=== PATIENT | male | born 1980 | race African-American/Black ===

== ENCOUNTER 2022-06-19 06:28 | Inpatient (IN) | payer OTHER, SELFPAY ==
[2022-06-19] VITALS (32 sets, daily range): BP systolic 140–192; BP diastolic 79–109; PULSE 80–123; RESP 14–32; TEMP 36–37.1; O2SAT 94–100; BMI 39.9
--- NOTE | ~2022-06-19 | XR_ITS ---
Portable chest x-ray Comparison: None Clinical History: Shortness of breath Findings: There is extensive groundglass pulmonary disease. No pleural effusion or pneumothorax. Ca rdiomediastinal silhouette is prominent. Bones and soft tissues are unremarkable. Impression: Extensive groundglass pulmonary disease. Correlate for pulmonary edema or infection. Probable cardiomegaly. Reviewed, dictated and finalized at location . Impression: Extensive groundglass pulmonary disease. Correlate for pulmonary edema or infec tion. Probable cardiomegaly.
--- NOTE | 2022-06-19 06:36 | ECG_ITS ---
Measurements Intervals [place] Rate: 113 P: 56 [place]: 119 QRS: 8 QRSD: 90 T: 73 QT: 312 QTc: 428 Interpretive Statements SINUS TACHYCARDIA WITH SHORT [place] INTERVAL BASELINE ARTIFACT POSSIBLE LEFT ATRIAL ENLARGEMENT BORDERLINE ECG NO PREVIOUS ECG AVAILABLE FOR COMPARISON Electronically Signed On 06-19-2022 16:57:17 CDT by Sanford Garrison M.D.
[2022-06-19 07:24] LABS: Basophils Percent Auto 0.4 % (0.2-1.2); Eosinophils Absolute Auto 0.2 K/mm3 (0-0.3); Eosinophils Percent Auto 2.4 % (0-4.4); Hematocrit 31.7 % (42.0-52.0); Immature Granulocyte Absolute 0.04 K/mm3 (0.00-0.031); Immature Granulocyte Percent A 0.5 % (0-0.5); Lymphocytes Percent Auto 20.2 % (18.3-44.2); Mean Corpuscular HGB Conc 31.5 g/dl (32-36); Mean Corpuscular Hemoglobin 26.8 pg (26-34); Monocytes Absolute Auto 0.3 K/mm3 (0.1-0.6); Monocytes Percent Auto 4.3 % (2.6-8.5); Neutrophils Absolute Auto 5.7 K/mm3 (1.3-6.7); Neutrophils Percent Auto 72.2 % (45.5-73.1); Platelet Count Result 195 k/mm3 (150-375); Red Blood Count 3.73 M/mm3 (4.6-6.20); Red Cell Distribution Width 15.6 % (11.5-14.5); White Blood Count 7.9 K/mm3 (4.5-10.0)
--- NOTE | 2022-06-19 07:32 | ED.GENADULT ---
HPI - General Adult General Chief complaint: Shortness of Breath/Dyspnea Stated complaint: sob Time Seen by Provider: 06/19/22 07:01 Source: RN notes reviewed History of Present Illness HPI narrative: Patient presents emergency department from home via EMS for shortness of breath. Patient states he is on his way to dialysis this morning and became progressively more short of breath. Patient states he normally receives dialysis on Sunday and Sunday but missed this past Sunday's dialysis. He states that he has had no chest pain he denies any abdominal pain nausea vomiting. He feels the shortness of breath is improved currently on his CPAP machine he was placed on CPAP by EMS secondary to increased work of breathing. Patient is currently awake and alert x4 with no complaints in the room Related Data Home Medications Medication Instructions Recorded Confirmed lisinopril 20 mg tablet 20 mg PO DAILY 06/19/22 06/19/22 Allergies Allergy/AdvReac Type Severity Reaction Status Date / Time amlodipine AdvReac Dyspnea / Verified 06/19/22 06:46 SOB lisinopril AdvReac Dyspnea / Verified 06/19/22 06:46 SOB Review of Systems Review of Systems: Gen.: Denies fevers or chills ENT: Denies congestion Respiratory: Reports shortness of breath CV: Denies chest pain or palpitations GI: Denies abdominal pain nausea, emesis or diarrhea reports chronic renal failure dialysis Musculoskeletal: Denies back pain or muscle pain Neuro: Denies numbness, tingling, weakness or focal weakness Skin: Denies rash Except as documented, all other systems reviewed and negative [facility] Past Medical History Medical History (Updated 06/19/22 @ 12:25 by Julio Prado DO) Chronic renal failure Family History Family History (Updated 06/19/22 @ 09:21 by Ubaldo Diaz RN) Other Unknown family medical history Social History Social History (Updated 06/19/22 @ 07:33 by Julio Prado DO) Smoking status: Never smoker Alcohol intake: current Drinks per week: 1 Substance use: never Lack of Transportation: No Lack of Food: Never True Current Housing: I Do Not Have Housing Concerned About Future Housing: No Difficulty Paying Gas/Electric Bills: No Difficulty Paying for Meds: No Currently Unemployed: No Education: High School Diploma/GED Difficulty w/ Childcare or Family Care: No Spiritual care concerns: No Exam Narrative: APPEARANCE: No acute distress, nontoxic, resting in bed EYES: EOMI HEENT: Normocephalic, atraumatic, OMM RESPIRATORY: No respiratory distress CPAP currently on, coarse breath sounds throughout bilateral lung moore no wheezing CARDIOVASCULAR: Regular rate and rhythm without murmurs rubs or gallops. ABDOMINAL: Soft, nontender, nondistended, no rebound or guarding MUSCULOSKELETAl: Moves all extremities. No clubbing, cyanosis or edema. NEURO: Awake and alert x 4. Following commands, speech normal, no focal deficits SKIN:: Warm, dry. No rashes lesions or abrasions PSYCHIATRIC: Normal affect/mood, Course Course Emergency Course: Called and discussed Dr. Griffin for nephrology presentation work-up agrees with plan for your consult and dialysis today Called discussed Dr. Mosley for hospitalist service agrees with admission Discussed with patient and family results of workup and diagnosis. Discussed need for admission. Patient and family understand and agree to current treatment plan Vital Signs Vital signs: Vital Signs Pulse Rate 123 H 06/19/22 06:33 Respiratory Rate 23 H 06/19/22 06:33 Pulse Oximetry 100 06/19/22 06:33 Oxygen Delivery CPAP 06/19/22 06:33 Temperature 96.9 F L 06/19/22 09:47 Pulse Rate 80 06/19/22 10:00 Respiratory Rate 20 06/19/22 09:47 Blood Pressure 185/109 H 06/19/22 09:47 Pulse Oximetry 100 06/19/22 09:47 Oxygen Delivery CPAP 06/19/22 09:47 Fraction of Inspired Oxygen 35 06/19/22 09:47 Medical [place]
[2022-06-19 07:35] LABS: INR 1.2; Prothrombin Time 14.3 Seconds (11.1-14.7)
[2022-06-19 07:36] LABS: Partial Thromboplastin Time 30.6 SECONDS (22.3-36.8)
[2022-06-19 07:39] LABS: Alveolar/Arterial O2 Gradient 178.5 mmHg; Base Excess ABG -1.6 mEq/l (+/-2.0); Carboxyhemoglobin 0.3 % THb (0-2.0); Fractional Inspired Oxygen 80 %; HCO3 ABG 24.6 mEq/l (22.0-26.0); Methemoglobin ABG 0.5 %THb (0-1.5); Oxygen Content ABG 15.3 %vol (16.0-22.0); Oxygen Saturation ABG 99.7 % (95.0-100.0); Oxyhemoglobin 98.1 % THb (90.0-100.0); PCO2 ABG 48.1 mmHg (35.0-45.0); PO2 ABG 341.4 mmHg (80.0-100.0); PO2 FiO2 Ratio Arterial Blood 4.27 %; Reduced Hemoglobin 1.1 %THb (0-5.0); Total Hemoglobin 10.4 g/dL (12.0-18.0); pH ABG 7.327 (7.350-7.450)
[2022-06-19 07:44] LABS: Device BIPAP; Modified Allen's Test Pass; Site Drawn RIGHT RADIAL
[2022-06-19 07:45] LABS: Alanine Aminotransferase 26 U/L (6-50); Albumin Level 4.4 g/dL (3.5-5.1); Alkaline Phosphatase 131 U/L (38-126); Anion Gap 16 mmol/L (8-16); Aspartate Amino Transferase 40 U/L (17-59); Bilirubin,Total 0.9 mg/dL (0.2-1.3); Blood Urea Nitrogen 74 mg/dL (9-20); Calcium 8.5 mg/dL (8.4-10.2); Carbon Dioxide 27 mmol/L (22-30); Chloride 94 mmol/L (98-107); Estimated CRCL calculation 5 ml/min; Estimated Glomerular Filt Rate 3; Glucose 127 mg/dL (65-110); Potassium 4.3 mmol/L (3.4-5.0); Sodium 137 mmol/L (137-145)
[2022-06-19 07:45] LABS: Expiratory Pressure 6 cmH2O; Inspiratory Pressure 16 cmH2O
[2022-06-19 07:53] LABS: Troponin I 0.085 ng/mL (0.000-0.034)
[2022-06-19 08:04] LABS: NT Pro B Type Natriuretic Pept > 30000 pg/mL (19.9-100)
--- NOTE | 2022-06-19 09:33 | ADMGEN ---
This patient, Ronit Mcneal, was admitted to Intensive Care Unit-3. Patient/family oriented to hospital policies and general routines including ID bracelet, bed and alarms, visiting hours, pain management, procedures, bathroom and other care routines, personal items, smoking policy, room service/diet, and visiting hours. Information on how to activate the Rapid Response Team has been discussed. Patient/Family are encouraged to report perceived risks to care and to ask questions if they do not understand what they are told or what they should do.
--- NOTE | 2022-06-19 10:15 | PC.NURSE ---
Dr. Mosley updated on patient arrival and blood pressure via telephone
[2022-06-19 11:26] LABS: Alveolar/Arterial O2 Gradient 80.7 mmHg; Base Excess ABG 2.2 mEq/l (+/-2.0); Fractional Inspired Oxygen 30 %; HCO3 ABG 27.5 mEq/l (22.0-26.0); Oxygen Content ABG 13.8 %vol (16.0-22.0); Oxygen Saturation ABG 95.5 % (95.0-100.0); Oxyhemoglobin 93.9 % THb (90.0-100.0); PCO2 ABG 46.1 mmHg (35.0-45.0); PO2 FiO2 Ratio Arterial Blood 2.63 %; Total Hemoglobin 10.4 g/dL (12.0-18.0); pH ABG 7.394 (7.350-7.450)
[2022-06-19 11:27] LABS: Device NON-INVASIVE VENT; Modified Allen's Test Pass; Non-Invasive Expiratory Pressure 6 CMH2O; Non-Invasive Inspiratory Pressure 16 CMH2O; Non-Invasive Vent Rate 16 /MIN; Site Drawn RIGHT RADIAL
[2022-06-19 11:27] LABS: Troponin I 0.114 ng/mL (0.000-0.034)
[2022-06-19 11:49] LABS: Hepatitis B Surface Antigen Negative (Negative)
[2022-06-19 12:17] LABS: Hepatitis B Surface Anti Res Positive
--- NOTE | 2022-06-19 13:30 | PC.NURSE ---
Patient up to dialysis room via bed without issue.
--- NOTE | 2022-06-19 13:43 | PM.IMHP ---
H&P: HPI History of Present Illness Date/Time: 06/19/22 13:43 Chief Complaint: Shortness of breath Narrative: This is a 41-year-old male patient with a history of hypertension and end-stage renal disease. The patient typically has dialysis on Sunday. However this past Sunday the patient stated that he had headache and he did feel well so he did not want to go to dialysis and make other people sick. Today the patient was on his regularly scheduled dialysis day when he became short of breath. The patient stated that his blood pressure was elevated so he took amlodipine. He is not currently prescribed and lower pain but had it prescribed in the past. The patient stated that [place] [address] when he became short of breath. He pulled his car over and activated the EMS system. The patient stated that he felt worse when he laid down or sat down and felt better when he would stand up. Initially the patient was placed on a BiPAP 16/6 with a rate of 16 and at 30% oxygen. The patient is now off of the BiPAP and is on oxygen at 2 L per nasal cannula. His H&H is currently 10 and 31.7. Initially on his ABGs is pH was 7.327 and then increase to 7.394. CO2 was 48.8 and decreased down to 46.1. Troponin 0.085, 0.114, and 0.120. BNP is greater than 30,000. Chest x-ray was read as extensive ground-glass pulmonary disease. Correlate for pulmonary edema or infection probable cardiomegaly. His blood pressure initially was 192/103. It is now 162/84. Nephrology was consulted. The patient is being admitted to inpatient status on the date of service of 06/19/2022. Review of Systems Review of Systems: All systems reviewed & are unremarkable except as noted in HPI and below Constitutional: Constitutional: Reports as per HPI and Reports no additional constitutional complaints Eyes: Eyes: Reports as per HPI and Reports no additional eye complaints ENT: Reports system reviewed and no additional complaints, except as documented and Reports Normal hearing present Cardiovascular: Cardiovascular: Reports no additional cardiovascular complaints Respiratory: Respiratory: Reports no additional respiratory complaints and Reports no additional respiratory complaints Gastrointestinal: Gastrointestinal: Reports as per HPI and Reports no additional gastrointestinal complaints Musculoskeletal: Musculoskeletal: Reports no additional musculoskeletal complaints Integumentary/Breasts: Skin/Breast: Reports system reviewed and no additional complaints, except as docu and Reports as per HPI Neurologic: Reports system reviewed and no additional complaints, except as documented, Reports as per HPI and Reports Normal hearing present Psychiatric: Psychiatric: Reports no additional psychiatric complaints and Reports as per HPI Endocrine: Endocrine: Reports no additional endocrine complaints Hematologic/Lymphatic: Hematologic/Lymphatic: Reports no additional hematologic/lymphatic complaints Allergic/Immunologic: Allergic/Immunologic: Reports no additional allergic/immunologic complaints [facility] Past Medical History Medical History (Updated 06/19/22 @ 15:52 by Trish Cotton NP) AV fistula Chronic kidney disease with end stage renal failure on dialysis Chronic renal failure Hyperlipidemia Hypertension Surgical History Surgical History H/O partial nephrectomy Family History Family History (Updated 06/19/22 @ 15:52 by Trish Cotton NP) Mother Hypotension Social History Social History (Updated 06/19/22 @ 15:53 by Trish Cotton NP) Social History: He is single. He is disabled. He has 1 child. Code status full code Smoking status: Never smoker Alcohol intake: current Drinks per week: 1 Substance use: never Lack of Transportation: No Lack of Food: Never True Current Housing: I Do Not Have Housing Concerned About Future Housing: No Difficulty
--- NOTE | 2022-06-19 15:20 | PM.CNNEP ---
Assessment and Plan Assessment and plan (1) End stage renal disease: Code(s): N18.6 - End stage renal disease Status: Chronic Assessment and Plan: HD today continue M/W/F dialysis schedule while hospitalized follow electroltyes, volume status, and clearance (2) Acute hypoxemic respiratory failure: Code(s): J96.01 - Acute respiratory failure with hypoxia Status: Acute Assessment and Plan: presumably due to fluid overload fluid removal with HD today reassess respiratory status s/p dialysis if no improvement, consider further imaging (i.e. CT of chest) and/or testing continue CPAP as needed (3) Hypertension: Code(s): I10 - Essential (primary) hypertension Status: Chronic Assessment and Plan: elevated at this time dialysis/fluid removal may help may need to change medications -- he seems to think amlodipine and lisinopril contributed to his shortness of breath follow trend of hemodynamics (4) Anemia: Code(s): D64.9 - Anemia, unspecified Status: Chronic Assessment and Plan: due to ESRD H/H at goal resume Epogen when Hgb < 10 I will continue to follow the patient with you while he remains hospitalized make further recommendations during his hospital course Thank you for allowing me to participate in the care this patient History of Present Illness Reason for Consult Consult date: 06/19/22 Reason for consult: end stage renal disease Chief Complaint Chief complaint: Pulmonary Edema/Acute Respiratory Failure w History of Present Illness Narrative: The patient is a 41-year-old male with a past medical history as outlined below who presented to [facility] Emergency Room from home via EMS for further evaluation of shortness of breath. The patient was attempting to get to his dialysis center for his regularly scheduled dialysis treatment when he noted that his breathing seemed to progressively get worse and worse this morning. He denies any chest pain or any other subjective symptoms of than the aforementioned shortness of breath. He called his dialysis center initially stating that he would need assistance given his shortness of breath and was recommended that he call EMS further assessment. On arrival by EMS, it was clear the patient was in respiratory S with increased work of breathing and they applied CPAP which seem to help. He was subsequently transferred her to [facility] emergency room for further assessment Workup and evaluation emergency room found the patient to be relatively stable with regard to his breathing with the use of CPAP therapy. Routine blood test demonstrated labs consistent with his known history of end-stage renal disease without any critical electrolyte abnormalities. His chest x-ray demonstrated evidence of pulmonary vascular congestion/ground-glass opacities. Given his respiratory issues, and on further questioning, the patient did report that he missed his scheduled dialysis treatment last Sunday. He was also noted to be quite hypertensive and I am unclear if he has taken his blood pressure medications today. Given his constellation of symptoms as well as his imaging/laboratory findings, he was admitted hospital for further evaluation and therapy. Renal consultation was requested due to his end-stage renal disease. The patient is quite familiar to me as I take care of his outpatient dialysis needs. He currently dialyzes on a Sunday, Sunday, Sunday dialysis schedule under my care at [facility]. From a dialysis perspective, he does have issues from time to time with significant fluid gains in between dialysis treatments and as noted by his history, he does sometimes miss scheduled dialysis treatments as well. As already mentioned, his last dialysis treatment prior to this hospital admission was on Sunday (06/14/22) and he is due for dialysis today. Currently, a
[2022-06-19] MEDS: SODIUM CHLORIDE 0.9% IV 1,000 ML 999 ML IV CONT (15:34)
[2022-06-19] MEDS: HEPARIN SODIUM 1,000 UNITS/ML VIAL 4000 UNITS (15:36)
[2022-06-19] MEDS: ACETAMINOPHEN 325 MG TABLET 650 MG PO (16:00)
[2022-06-19 20:35] LABS: Influenza A QL RT-PCR Negative (Negative); Influenza B QL RT-PCR Negative (Negative); RSV RNA, RT-PCR Negative (Negative); SARS-CoV-2 RNA PCR Negative
--- NOTE | 2022-06-19 21:00 | PC.NURSE ---
Pt left via PD vehicle to be taken to his car at 2100. All belongings sent home with pt. IV removed. DC packet given.
== END 2022-06-19 21:00 | disposition home or self-care (01) | DRG 640 ==
LOC: ANHED 07:32 → ANHICU 12:04
PROVIDERS: Emergency Medicine; Internal Medicine Nephrology; Nurse Practitioner; Admitting Provider Chiropractor; Emergency Provider Emergency Medicine; Visit Provider Chiropractor
DX: E87.79 Other fluid overload (principal); J96.01 Acute respiratory failure with hypoxia; N18.6 End stage renal disease; I12.0 Hypertensive chronic kidney disease with stage 5 chronic kidney disease or end stage renal disease; Z91.158 Patient's noncompliance with renal dialysis for other reason; D63.1 Anemia in chronic kidney disease; E78.5 Hyperlipidemia, unspecified; Z99.2 Dependence on renal dialysis; Z20.822 Contact with and (suspected) exposure to COVID-19
CPT/HCPCS: 36415; 36600; 71045; 80053; 82375; 82805; 83050; 83880; 84484; 85025; 85610; 85730; 86706; 87340; 87637; 93005; 99291; A9270; G0257; J1644; J7030